=== PATIENT | male | born 1955 | race Caucasian/White ===

== ENCOUNTER 2022-08-30 11:15 | Outpatient (CLI) | payer OTHER, SELFPAY ==
[2022-08-30 21:27] LABS: Chloride* 101 mmol/L (96-114)
[2022-08-30 21:28] LABS: Potassium* 4.8 mmol/L (3.6-5.1); Sodium* 139 mmol/L (135-149)
[2022-08-30 21:30] LABS: Creatinine* 0.8 mg/dL (0.5-1.5); Estimated Glomerular Filt Rate 98 ml/min
[2022-08-30 21:31] LABS: Blood Urea Nitrogen* 15 mg/dL (7-30); Carbon Dioxide* 28 mmol/L (20-32); Glucose* 79 mg/dL (60-115)
== END 2022-08-30 11:16 | disposition home or self-care (01) ==
LOC: LONREF 11:16
PROVIDERS: PCP Family Medicine; Visit Provider Family Medicine
DX: Z01.818 Encounter for other preprocedural examination (principal)
CPT/HCPCS: 80048

== ENCOUNTER 2022-10-05 09:06 | Outpatient (CLI) | payer OTHER, SELFPAY ==
[2022-10-05 14:29] LABS: Chloride* 104 mmol/L (96-114); Sodium* 140 mmol/L (135-149)
[2022-10-05 14:32] LABS: Blood Urea Nitrogen* 18 mg/dL (7-30); Carbon Dioxide* 30 mmol/L (20-32); Cholesterol* 205 mg/dL (90-199); Creatinine* 0.9 mg/dL (0.5-1.5); Estimated Glomerular Filt Rate 95 ml/min; Glucose* 92 mg/dL (60-115); Triglycerides* 90 mg/dL (40-149)
[2022-10-05 14:33] LABS: Calcium* 9.2 mg/dL (8.4-10.6); HDL Cholesterol* 56 mg/dL (>=40); LDL Cholesterol Calculated 131 mg/dL (<100)
== END 2022-10-05 09:07 | disposition home or self-care (01) ==
PROVIDERS: PCP Family Medicine; Visit Provider Family Medicine
DX: Z01.818 Encounter for other preprocedural examination (principal); E78.5 Hyperlipidemia, unspecified
CPT/HCPCS: 80048; 80061